=== PATIENT | female | born 1990 ===

== ENCOUNTER 2018-11-16 04:09 | Emergency (ER) | payer OTHER, MEDICAID, SELFPAY ==
[2018-11-16 04:14] VITALS: BP 114/86; PULSE 95; RESP 16; O2SAT 95
--- NOTE | 2018-11-16 04:14 | DI.CT.S_ITS ---
PROCEDURE: CT HEAD/BRAIN WO CON INDICATIONS: first time seizure TECHNIQUE: Noncontrast 4.5 mm thick angled axial sections acquired from the foramen magnum to the vertex, with coronal and sagittal reformats. For radiation dose reduction, the following was used: automated exposure control, adjustment of mA and/or kV according to patient size. COMPARISON: None. FINDINGS: Image quality: Excellent. CSF spaces: Basal cisterns are patent. No extra-axial fluid collections. Ventricles are normal in size and shape. Brain: No midline shift. No intracranial masses or hemorrhage. Todd-white matter interface is normal. Skull and face: Calvarium and visualized facial bones are intact, without suspicious lesions. Sinuses: Visualized sinuses and mastoids are clear. IMPRESSION: 1. No acute intracranial abnormalities. No significant discrepancy with the mold shifter radiology preliminary report. Dictated by: Jennifer Vines M.D. on 11/16/2018 at 7:48 Approved by: Jennifer Vines M.D. on 11/16/2018 at 7:49
--- NOTE | 2018-11-16 04:14 | ED.SEIZURE ---
HPI - Seizure General Chief Complaint: Seizure Stated Complaint: Seizure Time Seen by Provider: 11/16/18 04:12 Source: patient and EMS Mode of arrival: EMS Limitations: no limitations History of Present Illness HPI Narrative: Patient is a 27-year-old female who presents after 1st times seizure. She and her are camping with a blow up air mattress he woke up and she had fallen off he noticed some blood she was unresponsive. She also urinated herself. He was unable to get her to respond. She eventually did start coming around but was very confused. She denies any alcohol use she denies any medical history she does not take medicine daily. She had dinner. She does have a family history of seizures. MD complaint: possible seizure Witnessed: yes - by bystander Seizure History: none Place: street/outdoors (camping) Possible Precipitating Event: none Related Data Allergies Allergy/AdvReac Type Severity Reaction Status Date / Time No Known Drug Allergies Allergy Verified 11/16/18 06:18 Review of Systems Review of Systems ROS Unobtainable: All systems reviewed & are unremarkable except as noted in HPI and below Constitutional Constitutional: Denies chills, Denies fever(s), Denies lethargy and Denies weakness ENT Ears, Nose, Mouth, and Throat: Denies change in voice, Denies neck pain and Denies sore throat Cardiovascular Cardiovascular: Denies dyspnea and Denies dyspnea on exertion Respiratory Respiratory: Denies cough, Denies dyspnea, Denies dyspnea on exertion and Denies wheezing Gastrointestinal Gastrointestinal: Denies abdominal pain, Denies change in bowel habits, Denies diarrhea, Denies nausea and Denies vomiting Genitourinary Genitourinary: Denies hematuria, Denies flank pain, Denies urinary incontinence and Denies urinary urgency Musculoskeletal Musculoskeletal: Denies neck pain Integumentary/Breasts Skin/Breast: Denies pruritus, Denies erythema, Denies rash and Denies wounds Neurologic Neurologic: Reports as per HPI, Reports seizure-like activity and Denies weakness Allergic/Immunologic Allergic/Immunologic: Denies wheezing [facility] Medical History Patient denies medical problems (Acute) Social History (Updated 11/16/18 @ 04:24 by Monique Pratt DO) marital status: household members: spouse and children Smoking Status: Never smoker alcohol intake: never substance use type: does not use Social History marital status: household members: spouse and children Smoking Status: Never smoker alcohol intake: never substance use type: does not use Exam Initial Vital Signs Initial Vital Signs: Vital Signs Pulse Rate 95 H 11/16/18 04:14 Respiratory Rate 16 11/16/18 04:14 Blood Pressure 114/86 11/16/18 04:14 Pulse Oximetry 95 11/16/18 04:14 GENERAL: Alert over weight female and in no acute distress. HEENT: Head atraumatic,EOMI, pupils reactive, face symmetric, injury to tip of tongue, neck is supple CARDIOVASCULAR: Regular rate and rhythm without murmurs, rubs or gallops. RESPIRATORY: Breath sounds equal bilaterally, no wheezes rales or rhonchi. ABDOMEN: Soft, nontender. Normoactive bowel sounds all 4 quadrants. No guarding or rebound. RECTAL: Hemoccult-positive, no hemorrhoids, nontender : Urinary incontinence EXTREMITIES: Normal range of motion, no clubbing or edema. Neurovascularly intact NEUROLOGICAL: Alert and oriented x4.Normal gait and speech. Cranial nerves II through XII grossly intact. Audit Cler[employer] Supervisor strength equal bilaterally. Decreased sensation in left leg inability left leg SKIN: Warm, dry, no laceration, no petechiae, no rashes or lesions. Course Orders Ordered: ED Orders 11/16/18 04:14 CT head/brain wo con Stat Urine Drug Screen, Rapid Stat 11/16/18 04:27 Complete Blood Count AUTO DIFF Stat Comprehensive Metabolic Panel Stat Ethanol (ETOH) Stat Magnesium Stat Test Serum,Qual Stat Discontinued Medications Sodium Chloride (Normal Saline 0.9%) 1,000 mls @ 1,000 mls/hr IV BOLUS ONE Stop: 11/16/18 05:13 Last Infusion: 11/16/18 05:21 Dose: 0 mls/hr Documented by: Admin: 11/16/18 04:32 Dose: 1,000 mls/hr Documented by: OSCAR Ketorolac Tromethamine (Toradol) 30 mg IV NOW ONE Stop: 11/16/18 06:05 Last Admin: 11/16/18 06:25 Dose: 30 mg Documented by: OSCAR Vital Signs Vital signs: Vital Signs - 8 hr 11/16/18 04:14 11/16/18 05:00 11/16/18 05:30 Pulse Rate 95 H 90 83 Respiratory Rate 16 15 22 Blood Pressure 114/86 Blood Pressure [Right Arm] 119/51 L 121/58 L Pulse Oximetry 95 96 96 11/16/18 06:00 11/16/18 06:30 Pulse Rate 83 71 Respiratory Rate 22 12 Blood Pressure Blood Pressure [Right Arm] 128/68 125/64 Pulse Oximetry 95 95 MDM - Seizure Lab Data Attestation: I reviewed the patient's lab results. Result diagrams: 11/16/18 04:27 11/16/18 04:27 Labs: Lab Results 11/16/18 11/16/18 11/16/18 Range/Units 04:27 04:27 04:27 WBC 7.3 (4.5-11.0) X10^3/uL RBC 4.45 (4.0-5.2) X10^6/uL Hgb 12.6 (12.0-16.0) g/dL Hct 37.7 (36-46) % MCV 84.7 (80-100) fL MCH 28.4 (26-34) PG MCHC 33.5 (30-36) % RDW 13.1 (11.6-14.8) % Plt Count 243 (150-400) X10^3/uL Neut % (Auto) 69.8 (50-75) % Lymph % (Auto) 23.3 L (25-40) % [place] % (Auto) 5.6 (3-14) % Eos % (Auto) 0.9 L (2-4) % Baso % (Auto) 0.4 (0-2) % Neut # (Auto) 5100 (7514-2658) /uL Lymph # (Auto) 1700 (0310-8823) /uL [place] # (Auto) 400 (0-900) /uL Eos # (Auto) 100 (0-450) /uL Baso # (Auto) 0 (0-100) /uL Sodium (137-145) mmol/L Potassium (3.4-5.1) mmol/L Chloride (98-107) mmol/L Carbon Dioxide (22-32) mmol/L BUN (7-17) mg/dL Creatinine (0.52-1.04) mg/dL Estimated GFR (>60) mL/min BUN/Creatinine Ratio (6-22) Glucose (70-100) mg/dL Calcium (8.4-10.2) mg/dL Magnesium 1.9 (1.6-2.3) mg/dL Total Bilirubin (0.2-1.3) mg/dL AST (14-36) IU/L ALT (9-52) IU/L Alkaline Phosphatase (38-126) U/L Total Protein (6.3-8.2) g/dL Albumin (3.5-5.0) g/dL Globulin (1.7-4.1) g/dL Albumin/Globulin Ratio (1.0-2.8) Serum , Qual Negative (Negative) Ethyl Alcohol < 10 ( - 10) mg/dL 11/16/18 Range/Units 04:27 WBC (4.5-11.0) X10^3/uL RBC (4.0-5.2) X10^6/uL Hgb (12.0-16.0) g/dL Hct (36-46) % MCV (80-100) fL MCH (26-34) PG MCHC (30-36) % RDW (11.6-14.8) % Plt Count (150-400) X10^3/uL Neut % (Auto) (50-75) % Lymph % (Auto) (25-40) % [place] % (Auto) (3-14) % Eos % (Auto) (2-4) % Baso % (Auto) (0-2) % Neut # (Auto) (3035-1604) /uL Lymph # (Auto) (4387-5811) /uL [place] # (Auto) (0-900) /uL Eos # (Auto) (0-450) /uL Baso # (Auto) (0-100) /uL Sodium 142 (137-145) mmol/L Potassium 3.9 (3.4-5.1) mmol/L Chloride 105 (98-107) mmol/L Carbon Dioxide 25 (22-32) mmol/L BUN 11 (7-17) mg/dL Creatinine 0.60 (0.52-1.04) mg/dL Estimated GFR > 60.0 (>60) mL/min BUN/Creatinine Ratio 18.3 (6-22) Glucose 147 H (70-100) mg/dL Calcium 8.8 (8.4-10.2) mg/dL Magnesium (1.6-2.3) mg/dL Total Bilirubin 0.4 (0.2-1.3) mg/dL AST 35 (14-36) IU/L ALT 25 (9-52) IU/L Alkaline Phosphatase 81 (38-126) U/L Total Protein 7.5 (6.3-8.2) g/dL Albumin 4.3 (3.5-5.0) g/dL Globulin 3.2 (1.7-4.1) g/dL Albumin/Globulin Ratio 1.3 (1.0-2.8) Serum , Qual (Negative) Ethyl Alcohol ( - 10) mg/dL Point of Care Testing Glucose POC [address] scan - head: Radiologist's impression: leadlighter report: No acute intracranial abnormality MDM Narrative Medical decision making narrative: Patient states that she has not been sleeping very well 3-6 hours a night her dad dying of lung cancer. She clinically had a seizure with injury to tongue urinary incontinence and what appears to be Luis Miguel's paralysis. The patient is ambulatory without assistance. Her left leg weakness has improved over time. I have discussed with her that she needs evaluation by Neurology and her PCP. I also discussed with her and she is not allowed to dry. Discharge Plan Departure Patient Disposition: Home Clinical Impression: New onset seizure, Luis Miguel's paralysis Instructions: DI for Seizure (Not Epilepsy/Seizure Disorder) Activity Restrictions/Additional Instructions: DO NOT DRIVE UNTIL CLEARED BY NEUROLOGY OR YOUR PCP GENERALLY ABOUT 6 MONTHS TO 1 YEAR *You have been diagnosed with seizures *What to do: You need to be seen and followed up with her primary care provider he may need to be seen by a neurologist and have further testing done. Need on a regular basis, sleep regularly *Continue to take medications as directed *Follow up with your primary care provider in 2-3 days *Return to ER if you should have seizure, weakness, numbness, tingling or any new, worsening or concerning symptoms
[2018-11-16] MEDS: SODIUM CHLORIDE 0.9% 1,000 ML 1000 ML IV (04:32)
[2018-11-16 04:37] LABS: Add Manual Diff / Slide Review NO; Basophils Absolute Auto 0 /uL (0-100); Basophils Percent Auto 0.4 % (0-2); Eosinophils Absolute Auto 100 /uL (0-450); Eosinophils Percent Auto 0.9 % (2-4); Hematocrit 37.7 % (36-46); Hemoglobin 12.6 g/dL (12.0-16.0); Lymphocytes Absolute Auto 1700 /uL (1100-4500); Lymphocytes Percent Auto 23.3 % (25-40); Mean Corpuscular HGB Conc 33.5 % (30-36); Mean Corpuscular Hemoglobin 28.4 PG (26-34); Mean Corpuscular Volume 84.7 fL (80-100); Monocytes Absolute Auto 400 /uL (0-900); Monocytes Percent Auto 5.6 % (3-14); Neutrophils Absolute Auto 5100 /uL (1500-7000); Neutrophils Percent Auto 69.8 % (50-75); Platelet Count 243 X10^3/uL (150-400); Red Blood Cell Count 4.45 X10^6/uL (4.0-5.2); Red Cell Distribution Width 13.1 % (11.6-14.8); White Blood Cell Count 7.3 X10^3/uL (4.5-11.0)
[2018-11-16 04:45] LABS: Ethanol (ETOH) < 10 mg/dL; Magnesium 1.9 mg/dL (1.6-2.3); Pregnancy Test Serum,Qual Negative (Negative)
[2018-11-16 04:46] LABS: Alanine Aminotransferase 25 IU/L (9-52); Albumin 4.3 g/dL (3.5-5.0); Albumin Globulin Ratio 1.3 (1.0-2.8); Alkaline Phosphatase 81 U/L (38-126); Aspartate Aminotransferase 35 IU/L (14-36); BUN Creatinine Ratio 18.3 (6-22); Bilirubin Total 0.4 mg/dL (0.2-1.3); Blood Urea Nitrogen 11 mg/dL (7-17); Calcium 8.8 mg/dL (8.4-10.2); Carbon Dioxide 25 mmol/L (22-32); Chloride 105 mmol/L (98-107); Estimated Glomerular Filt Rate > 60.0 mL/min (>60); Globulin 3.2 g/dL (1.7-4.1); Glucose 147 mg/dL (70-100); HEMOLYSIS 34 (0-50); Potassium 3.9 mmol/L (3.4-5.1); Sodium 142 mmol/L (137-145); Total Protein 7.5 g/dL (6.3-8.2)
[2018-11-16 05:00] VITALS: BP 119/51; PULSE 90; RESP 15; O2SAT 96
[2018-11-16 05:30] VITALS: BP 121/58; PULSE 83; RESP 22; O2SAT 96
[2018-11-16 06:00] VITALS: BP 128/68; PULSE 83; RESP 22; O2SAT 95
[2018-11-16] MEDS: KETOROLAC 60 MG/2 ML VIAL 30 MG IV (06:25)
[2018-11-16 06:30] VITALS: BP 125/64; PULSE 71; RESP 12; O2SAT 95
--- NOTE | 2018-11-16 07:20 | PC.NURSE ---
Ambulatory to BR, steady gait. Pt ready for discharge.
--- NOTE | 2018-11-16 07:21 | PC.NURSE ---
Clean underwear and paper pants given to patient.
[2018-11-16 07:34] VITALS: BP 125/67; PULSE 75; RESP 18; O2SAT 99
== END 2018-11-16 07:35 | disposition home or self-care (01) ==
PROVIDERS: Emergency Provider Emergency Medicine
DX: R56.9 Unspecified convulsions (principal); G83.84 Todd's paralysis (postepileptic)
CPT/HCPCS: 70450; 80053; 80320; 82962; 83735; 84703; 85025; 96361; 96374; 99283; 99284; J1885